=== PATIENT | male | born 1995 | race Caucasian/White ===

== ENCOUNTER 2017-11-28 17:49 | Emergency (ER) | payer OTHER, SELFPAY ==
[2017-11-28] MEDS ORDERED: IBUPROFEN 400 MG TAB ONE (18:50)
--- NOTE | 2017-11-28 19:30 | ER ---
Nurse's Notes [facility] Name: Cordell Reich Age: 22 yrs Sex: Male : 1995 Arrival Date: 11/28/2017 Time: 17:51 Bed 18 Private MD: Diagnosis: Sprain of ankle-Left Presentation: 11/28 18:01 Presenting complaint: Patient states: i was skating and i rolled my RIGHT ankle. tw2 Transition of care: patient was not received from another setting of care. Onset of symptoms was November 28, 2017. Risk Assessment: Do you want to hurt yourself or someone else? Patient reports no desire to harm self or others. Initial Sepsis Screen: Does the patient meet any 2 criteria? No. Patient's initial sepsis screen is negative. Does the patient have a suspected source of infection? No. Patient's initial sepsis screen is negative. Care prior to arrival: None. 18:01 Method Of Arrival: Ambulatory tw2 18:01 Acuity: JUAN 4 tw2 Historical: - Allergies: 18:03 No Known Allergies; tw2 - Home Meds: 18:03 None [Active]; tw2 - PMHx: 18:03 ADD/ADHD; tw2 - PSHx: 18:03 Tonsillectomy; tw2 - Immunization history:: Adult Immunizations up to date. - Social history:: Smoking status: Patient uses tobacco products, "2-3 cigarettes a day", Patient uses alcohol, occasionally. - Ebola Screening: : Patient denies travel to an Ebola-affected area in the 21 days before illness onset. Screenin:03 Abuse screen: Denies threats or abuse. Nutritional screening: No deficits noted. tw2 Tuberculosis screening: No symptoms or risk factors identified. Fall Risk None identified. Assessment: 18:08 General: Appears in no apparent distress. Behavior is calm, cooperative, appropriate tw2 for age. Pain: Complains of pain in right lateral malleolus and right medial malleolus. Neuro: Level of Consciousness is awake, alert, obeys commands, Oriented to person, place, time, situation. Cardiovascular: Denies chest pain, shortness of breath, Capillary refill < 3 seconds Patient's skin is warm and dry. Respiratory: Airway is patent Respiratory effort is even, unlabored, Respiratory pattern is regular, symmetrical. GI: No signs and/or symptoms were reported involving the gastrointestinal system. : No signs and/or symptoms were reported regarding the genitourinary system. EENT: No signs and/or symptoms were reported regarding the EENT system. Derm: No signs and/or symptoms reported regarding the dermatologic system. Skin is intact, is healthy with good turgor, Skin temperature is warm. Musculoskeletal: Range of motion: intact in all extremities. 18:49 Reassessment: Patient appears in no apparent distress at this time. No changes from tw2 previously documented assessment. Patient and/or family updated on plan of care and expected duration. Pain level reassessed. Patient is alert, oriented x 3, equal unlabored respirations, skin warm/dry/pink. 19:25 General: Appears in no apparent distress. Behavior is calm, cooperative, appropriate ea for age. Pain: Complains of pain in right medial malleolus and right lateral malleolus. Neuro: Level of Consciousness is awake, alert, obeys commands, Oriented to person, place, time, situation. Cardiovascular: Patient's skin is warm and dry. Respiratory: Airway is patent Respiratory effort is even, unlabored, Respiratory pattern is regular, symmetrical. GI: No signs and/or symptoms were reported involving the gastrointestinal system. : No signs and/or symptoms were reported regarding the genitourinary system. Derm: Skin is pink, warm \\T\\ dry. Musculoskeletal: Range of motion: intact in all extremities. 19:39 Reassessment: Patient and/or family updated on plan of care and expected duration. Pain ea level reassessed. Patient is alert, oriented x 3, equal unlabored respirations, skin warm/dry/pink. Discharge instructions given to patient, verbalized the understanding of instruction. Patient states feeling better. Patient states symptoms have improved. Vital Signs: 18:01 BP 113 / 68; Pulse 102; Resp 18; Temp 98.8(O); Pulse Ox 97% ; Weight 90.72 kg (R); tw2 Height 5 ft. 11 in. (180.34 cm); Pain 8/10; 18:01 Body Mass Index 27.89 (90.72 kg, 180.34 cm) tw2 ED Course: 17:51 Patient arrived in ED. rg4 18:01 Cherry Murillo RN is Primary Nurse. tw2 18:01 Phi Holcomb PA is PHCP. cp 18:01 South Collins MD is Attending Physician. cp 18:01 Triage completed. tw2 18:01 Arm band placed on. tw2 18:04 Bed in low position. Call light in reach. Pulse ox on. NIBP on. Ice pack to injury. tw2 19:06 Report given to FERNANDO Tamez. tw2 19:27 X-ray completed. Portable x-ray completed in exam room. Patient tolerated procedure bb2 well. 19:28 XRAY Ankle RIGHT 3 view In Process Unspecified. EDMS 19:29 Heladio Majano MD is Referral Physician. cp 19:35 Crutch training done. air cast applied. ea 19:41 No provider procedures requiring assistance completed. Patient did not have IV access ea during this emergency room visit. Administered Medications: 18:49 Drug: Ibuprofen 800 mg Route: PO; tw2 19:30 Follow up: Response: No adverse reaction; Pain is decreased ea Outcome: 19:29 Discharge ordered by MD. cp 19:41 Discharged to home with crutches. ea 19:41 Condition: improved 19:41 Discharge instructions given to patient, Instructed on discharge instructions, follow up and referral plans. medication usage, Demonstrated understanding of instructions, follow-up care, medications, Prescriptions given X 1. 19:42 Patient left the ED. ea Signatures: Dispatcher [employer] EDDC Phi Holcomb PA PA cp Wise, Tara, RN RN tw2 Elsa Dumont rg4 Joi Dale RN RN ea Bock, Brittany bb2
--- NOTE | 2017-11-28 19:30 | EDPHYS ---
Physician Documentation [facility] Name: Cordell Reich Age: 22 yrs Sex: Male : 1995 Arrival Date: 11/28/2017 Time: 17:51 Bed 18 Private MD: ED Physician South Collins HPI: 11/28 18:30 This 22 yrs old Male presents to ER via Ambulatory with complaints of Ankle cp Injury. 18:30 The patient presents with an injury, pain, that is acute, swelling, tenderness. The cp complaints affect the right ankle. Onset: The symptoms/episode began/occurred today. Context: The mechanism of injury involved inversion of the affected ankle. The patient can partially bear weight on the affected extremity. the patient is able to ambulate, with moderate difficulty. Associated signs and symptoms: Pertinent positives: tingling Pertinent negatives: calf tenderness, fever, numbness, tingling, warmth, weakness. Modifying factors: the symptoms are aggravated by weight bearing, movement. Historical: - Allergies: 18:03 No Known Allergies; tw2 - Home Meds: 18:03 None [Active]; tw2 - PMHx: 18:03 ADD/ADHD; tw2 - PSHx: 18:03 Tonsillectomy; tw2 - Immunization history:: Adult Immunizations up to date. - Social history:: Smoking status: Patient uses tobacco products, "2-3 cigarettes a day", Patient uses alcohol, occasionally. - Ebola Screening: : Patient denies travel to an Ebola-affected area in the 21 days before illness onset. ROS: 18:35 Constitutional: Negative for body aches, chills, fever, poor PO intake. cp 18:35 Eyes: Negative for injury, pain, redness, and discharge. cp 18:35 ENT: Negative for drainage from ear(s), ear pain, sore throat, difficulty swallowing, difficulty handling secretions. 18:35 Cardiovascular: Negative for chest pain, edema, palpitations. 18:35 Respiratory: Negative for cough, shortness of breath, wheezing. 18:35 Abdomen/GI: Negative for abdominal pain, nausea, vomiting, and diarrhea. 18:35 Back: Negative for pain at rest, pain with movement. 18:35 MS/extremity: Positive for pain, swelling, tenderness, of the right ankle, Negative for decreased range of motion, paresthesias. 18:35 Skin: Negative for cellulitis, rash. 18:35 All other systems are negative. Exam: 18:40 Constitutional: The patient appears in no acute distress, alert, awake, non-toxic, well cp developed, well nourished. 18:40 Head/Face: Normocephalic, atraumatic. cp 18:40 Eyes: Periorbital structures: appear normal, Conjunctiva: normal, no exudate, no injection, Lids and lashes: appear normal, bilaterally. 18:40 ENT: External ear(s): are unremarkable, Nose: is normal, Mouth: Lips: moist, Oral mucosa: pink and intact, moist, Posterior pharynx: is normal, airway is patent. 18:40 Chest/axilla: Inspection: normal. 18:40 Cardiovascular: Rate: normal, Rhythm: regular. 18:40 Respiratory: the patient does not display signs of respiratory distress, Respirations: normal, no use of accessory muscles, no retractions, no splinting, no tachypnea. 18:40 Abdomen/GI: Exam negative for discomfort, distension, guarding, Inspection: abdomen appears normal. 18:40 Back: pain, is absent, ROM is normal. 18:40 Musculoskeletal/extremity: Extremities: grossly normal except: noted in the right lateral malleolus: pain, swelling, tenderness, Perfusion: the extremity is normally perfused throughout, Sensation intact. Achilles tendon intact, no pain palpated at proximal fibula or bas of right fifth metatarsal. Vital Signs: 18:01 BP 113 / 68; Pulse 102; Resp 18; Temp 98.8(O); Pulse Ox 97% ; Weight 90.72 kg (R); tw2 Height 5 ft. 11 in. (180.34 cm); Pain 8/10; 18:01 Body Mass Index 27.89 (90.72 kg, 180.34 cm) tw2 MDM: 18:01 Patient medically screened. cp 19:00 Differential diagnosis: fracture, sprain, dislocation. cp 19:28 Data reviewed: vital signs, nurses notes, radiologic studies, plain films, and as a cp result, I will discharge patient. 19:28 Test interpretation: by ED physician or midlevel provider: plain radiologic studies. cp Counseling: I had a detailed discussion with the patient and/or guardian regarding: the historical points, exam findings, and any diagnostic results supporting the discharge/admit diagnosis, radiology results, to return to the emergency department if symptoms worsen or persist or if there are any questions or concerns that arise at home. Response to treatment: the patient's symptoms have mildly improved after treatment. 11/28 18:44 Order name: XRAY Ankle RIGHT 3 view cp 11/28 18:02 Order name: Ice pack; Complete Time: 18:43 tw2 11/28 19:28 Order name: Crutches; Complete Time: 19:39 cp 11/28 19:28 Order name: Ankle Splint: Aircast; Complete Time: 19:39 cp Administered Medications: 18:49 Drug: Ibuprofen 800 mg Route: PO; tw2 19:30 Follow up: Response: No adverse reaction; Pain is decreased ea Disposition: 11/28/17 19:29 Discharged to Home. Impression: Sprain of ankle - Left. - Condition is Stable. - Discharge Instructions: Ankle Sprain. - Prescriptions for Naprosyn 500 mg Oral Tablet - take 1 tablet by ORAL route 2 times per day As needed take with food; 20 tablet. - Medication Reconciliation Form, Thank You Letter, Antibiotic Education, Prescription Opioid Use form. - Follow up: Heladio Majano MD; When: 1 week; Reason: if pain continues. - Problem is new. - Symptoms have improved. Addendum: 12/01/2017 07:19 Co-signature as Attending Physician, South Collins MD I agree with the assessment and k dr plan of care. Signatures: Dispatcher [employer] EDMS South Collins MD MD [facility] Phi Holcomb PA PA cp Cherry Murillo RN RN tw2 Joi Dale RN RN ea Corrections: (The following items were deleted from the chart) 11/28 19:42 19:29 11/28/2017 19:29 Discharged to Home. Impression: Sprain of ankle - Left. ea Condition is Stable. Forms are Medication Reconciliation Form, Thank You Letter, Antibiotic Education, Prescription Opioid Use. Follow up: Heladio Majano; When: 1 week; Reason: if pain continues. Problem is new. Symptoms have improved. cp
[2017-11-28 19:49] VITALS: BP 113/68; TEMP 98.8; O2SAT 97
--- NOTE | 2017-11-28 20:13 | RAD REPORT ---
EXAM DESCRIPTION: RAD - Ankle Right 3 View - 11/28/2017 7:28 pm CLINICAL HISTORY: Twisting injury, ankle pain COMPARISON: March 2012 FINDINGS: No fracture, dislocation or periosteal reaction. No joint effusion seen. No joint space na rrowing. Mild lateral soft tissue swelling. There is mild anterior soft tissue swelling as well. No p lantar spur. IMPRESSION: Mild soft tissue swelling with no acute bone or joint finding.
== END 2017-11-28 19:42 | disposition home or self-care (01) ==
LOC: ER 17:49
DX: S93.401A Sprain of unspecified ligament of right ankle, initial encounter (principal); Y93.01 Activity, walking, marching and hiking; Y93.89 Activity, other specified; Y92.9 Unspecified place or not applicable; F17.210 Nicotine dependence, cigarettes, uncomplicated
CPT/HCPCS: 99284

== ENCOUNTER 2018-11-27 15:10 | Emergency (ER) | payer BC, SELFPAY ==
--- OUTSIDE RECORDS SUMMARY | 2018-11-27 15:11 | XMS REPORT ---
:1995 [facility] [address] [place] [address] Care Team Providers Name Role Phone Unavailable Unavailable Unavailable Problems This patient has no known problems. Allergies, Adverse Reactions, Alerts This patient has no known allergies or adverse reactions. Medications This patient has no known medications. Results Test Description Test Time Test Comments Text Results Atomic Results Result Comments ISTAT CHEM 8 2018-08-10 11:05:00 Test Item Value Reference Range Comments ISTATNA (test code=ISTATNA) 140 MMOL/L 137-145 ISTATK (test code=ISTATK) 3.8 MMOL/L 3.6-5.0 ISTATCL (test code=ISTATCL) 98 MMOL/L 98-107 ISTIONCA (test code=ISTIONCA) 1.17 MMOL/L 1.12-1.32 ISTCO2 (test code=ISTCO2) 28 MMOL/L 22-30 ISTATGLU (test code=ISTATGLU) 99 MG/DL 65-110 ISTATBUN (test code=ISTATBUN) 11.0 MG/DL 7.0-20.0 ISTCREA (test code=ISTCREA) 0.9 MG/DL 0.7-1.5 ISTATHCT (test code=ISTATHCT) 46 %PCV 37.0-52.0 ISTATHGB (test code=ISTATHGB) 15.6 G/DL 12.0-18.0 ISTANGAP (test code=ISTANGAP) 19 MMOL/L [id number] 10:54:00 Test Item Value Reference Range Comments GLUCOSE (test code=URGLU) NEGATIVE MG/DL NEG-100 BILIRUBN (test code=URBILI) NEGATIVE NEGATIVE KETONE (test code=URKET) NEGATIVE MG/DL NEGATIVE BLOOD (test code=URBLD) NEGATIVE UR PH (test code=URPH) 6.5 5.0-7.5 PROTEIN (test code=URPRO) NEGATIVE MG/DL NEGATIVE NITRITES (test code=URNIT) NEGATIVE NEGATIVE UROBILINGEN (test code=URURO) 0.2 EU/DL 0.2-1.0 LEUKOCYT (test code=URLEU) NEGATIVE NEGATIVE UA COLOR (test code=UA COLOR) YELLOW YELLOW CLARITY (test code=CLARITY) CLEAR CLEAR SP GRAV (test code=URSPGRAV) 1.006 1.000-1.025 UAMICRO (test code=UAMICRO) NO [id number] 09:43:00 Test Item Value Reference Range Comments LIPASE (test code=LIPA) 44 U/L 23-300 LIVER [id number] 09:43:00 Test Item Value Reference Range Comments TOTPROT (test code=TOTPROT) 7.8 G/DL 6.3-8.2 ALBUMIN (test code=ALBSERUM) 4.8 G/DL 3.5-5.0 BILITOT (test code=BILITOT) 0.8 MG/DL 0.2-1.3 BILIDIR (test code=BILIDIR) 0.5 MG/DL 0.0-0.4 AST (test code=AST) 32 U/L 15-46 PHOSALK (test code=PHOSALK) 54 U/L 38-126 ALT (test code=ALT) 38 U/L 13-69 [id number] 09:27:00 Test Item Value Reference Range Comments WBC (test code=WBC) 8.8 K/UL 3.5-10.9 RBC (test code=RBC) 5.27 M/UL 4.3-5.7 HGB (test code=HGB) 15.2 G/DL 13.0-17.9 HCT (test code=HCT) 44.1 % 38-52 MCV (test code=MCV) 83.7 FL 80-98 MCH (test code=MCH) 28.8 PG 28-32 MCHC (test code=MCHC) 34.5 G/DL 32.5-36.5 RDW (test code=RDW) 12.4 % 11.5-14.5 PLT (test code=PLT) 206 K/UL 150-450 MPV (test code=MPV) 9.5 FL 7.4-10.4 MANDIFF (test code=MANDIFF) NO SCAN (test code=SCAN) NO NEUT% (test code=NEUT%) 60.3 % 40-75 LYMPH% (test code=LYMPH%) 27.3 % 24-44 MONO% (test code=MONO%) 8.2 % 0-13 EOS% (test code=EOS%) 3.1 % 0-4 BASO % (test code=BASO%) 0.6 % 0-2 IG (test code=IG) 0 % 0-1 IG% (test code=IG%) 0.5 % 0-1 IG%=Metamyelocytes, Myelocytes, and Promyelocytes. (Immature neutrophils not including "bands".) > 3% IG indicates risk of sepsis NRBC% (test code=NRBC%) 0 /100 WBC ABS NEUT (test code=NEUT) 5.3 K/UL 1.2-7.2 CT HEAD W/O [id number] 09:15:[address] [id number] IMAGING REPORTPatient Name: Carmen REID of Service: [id number]: 23 Sex: M Order #: [id number] Room: [facility]: 1995 X-Ray Number: [id number] Record Number: [id number] Hospital Number: [id number] Physician: LEYDI ROSSOrdering Physician: ALEJANDRO ROSS CT BRAIN WITHOUT CONTRAST 08/09/2018HISTORY : Syncope, possible head injuryCOMPARISON: NoneThis CT exam was performed using one or more of the following dosereduction techniques: Automated exposure control, adjustment of the mAand/or kV according to patient size, or use of iterative reconstructiontechnique.Axial images were obtained through the brain without contrast.Visualized portions of the orbits, mastoids, scalp, and skull are withinnormal limits. Minimal mucosal thickening versus fluid is seen in theposterior left maxillary sinus.There is no acute intracranial hemorrhage, infarct, mass, shift, edema, orhydrocephalus.IMPRESSION:No acute brain process.Minimal left maxillary sinusitis changes.Electronically SignedBy: Alberto Salas M.D., 08/09/2018 9:13 AMLegally authenticated by MARIA DOLORES ELENA 2018-08-09 09: 13:20
--- NOTE | 2018-11-27 16:33 | RAD REPORT ---
EXAM DESCRIPTION: RAD - Foot Right 3 View - 11/27/2018 4:00 pm CLINICAL HISTORY: Trauma, right heel pain COMPARISON: None. FINDINGS: No fracture, dislocation or periosteal reaction. No air or foreign body in the soft tissues. IMPRESSION: Negative right foot examination.
--- NOTE | 2018-11-27 16:44 | ER ---
Nurse's Notes [facility] Name: Cordell Reich Age: 23 yrs Sex: Male : 1995 Arrival Date: 11/27/2018 Time: 15:13 Bed 18 Private MD: Diagnosis: Pain in right foot Presentation: 11/27 15:28 Presenting complaint: Right heel pain x 1 week, worse after he slipped while descending hb stairs yesterday. Transition of care: patient was not received from another setting of care. Onset of symptoms was November 26, 2018. Risk Assessment: Do you want to hurt yourself or someone else? Patient reports no desire to harm self or others. Initial Sepsis Screen: Does the patient meet any 2 criteria? No. Patient's initial sepsis screen is negative. Does the patient have a suspected source of infection? No. Patient's initial sepsis screen is negative. Care prior to arrival: None. 15:28 Method Of Arrival: Ambulatory hb 15:28 Acuity: JUAN 4 hb Historical: - Allergies: 15:30 No Known Allergies; hb - PMHx: 15:30 ADD/ADHD; hb - PSHx: 15:30 Tonsillectomy; hb - Immunization history:: Adult Immunizations up to date. - Social history:: Smoking status: Patient/guardian denies using tobacco. - Ebola Screening: : No symptoms or risks identified at this time. Screenin:45 Abuse screen: Denies threats or abuse. Nutritional screening: No deficits noted. em Tuberculosis screening: No symptoms or risk factors identified. Fall Risk None identified. Assessment: 15:45 General: Appears in no apparent distress. comfortable, Behavior is calm, cooperative. em Pain: Complains of pain in heel of right foot Pain currently is 7 out of 10 on a pain scale. Pain began 1 week ago. Neuro: Level of Consciousness is awake, alert, obeys commands, Oriented to person, place, time, situation. Cardiovascular: Capillary refill < 3 seconds Patient's skin is warm and dry. Respiratory: Airway is patent Respiratory effort is even, unlabored, Respiratory pattern is regular, symmetrical. Derm: Skin is intact, is healthy with good turgor, Skin is pink, warm \T\ dry. Musculoskeletal: Capillary refill < 3 seconds, Range of motion: intact in all extremities, Swelling absent. 15:45 Reassessment: I agree with assessment completed by Stanislav Rodriguez LVN . aa5 Vital Signs: 15:29 BP 154 / 75; Pulse 86; Resp 16; Temp 97.9; Pulse Ox 99% on R/A; Weight 95.25 kg; Height em 5 ft. 11 in. (180.34 cm); Pain 7/10; 15:29 Body Mass Index 29.29 (95.25 kg, 180.34 cm) em ED Course: 15:13 Patient arrived in ED. as 15:29 Triage completed. hb 15:29 Arm band placed on. hb 15:32 Lali Bower FNP-C is PHCP. kb 15:32 South Collins MD is Attending Physician. kb 15:45 Patient has correct armband on for positive identification. Bed in low position. Call em light in reach. Adult w/ patient. 16:00 Foot Right 3 View XRAY In Process Unspecified. EDMS 16:11 Stanislav Rodriguez LVN is Primary Nurse. em 16:54 No provider procedures requiring assistance completed. Patient did not have IV access em during this emergency room visit. Administered Medications: 16:50 Drug: [place] 5 mg-325 mg 1 tabs Route: PO; em 16:54 Follow up: Response: Medication administered at discharge. em Outcome: 16:43 Discharge ordered by MD. kb 16:54 Discharged to home ambulatory. em 16:54 Condition: good 16:54 Discharge instructions given to patient, Instructed on discharge instructions, follow up and referral plans. medication usage, Demonstrated understanding of instructions, follow-up care, medications, Prescriptions given X 1. 16:54 Patient left the ED. em Signatures: Dispatcher [employer] EDMD Lali Bower FNP-C [employer] REPA[employer]ER-Stanislav Peraza LVN LVN em Hailey Houston Audri RN RN aa5 Polly Arceo, FERNANDO RN Corrections: (The following items were deleted from the chart) 16:13 15:29 BP 154 / 75; Pulse 16bpm; Resp 16bpm; Pulse Ox 99% RA; Temp 97.9F; 95.25 kg; em Height 5 ft. 11 in.; BMI: 29.2; Pain 7/10; hb
--- NOTE | 2018-11-27 16:44 | EDPHYS ---
Physician Documentation [facility] Name: Cordell Reich Age: 23 yrs Sex: Male : 1995 Arrival Date: 11/27/2018 Time: 15:13 Bed 18 Private MD: ED Physician [place] HPI: 11/27 16:49 This 23 yrs old Male presents to ER via Ambulatory with complaints of Foot kb Injury. 16:49 The patient presents with pain, tenderness. The complaints affect the right foot. kb Context: The problem was sustained at home, resulted from jumping off second floor [employer], the patient can partially bear weight, the patient is able to ambulate. Onset: The symptoms/episode began/occurred 1 week(s) ago. Modifying factors: The symptoms are alleviated by nothing, the symptoms are aggravated by weight bearing. Associated signs and symptoms: The patient has no apparent associated signs or symptoms. Severity of symptoms: At their worst the symptoms were moderate, in the emergency department the symptoms are unchanged. The patient has not experienced similar symptoms in the past. The patient has not recently seen a physician. Pt reports right heel pain after jumping from his balGlycode. STates "I sometimes jump from up there to downstairs and the last time I did it I landed on a pillow. My heel has been hurting since then.". Historical: - Allergies: 15:30 No Known Allergies; hb - PMHx: 15:30 ADD/ADHD; hb - PSHx: 15:30 Tonsillectomy; hb - Immunization history:: Adult Immunizations up to date. - Social history:: Smoking status: Patient/guardian denies using tobacco. - Ebola Screening: : No symptoms or risks identified at this time. ROS: 16:48 Constitutional: Negative for fever, chills, and weight loss, Neck: Negative for injury, kb pain, and swelling, Cardiovascular: Negative for chest pain, palpitations, and edema, Respiratory: Negative for shortness of breath, cough, wheezing, and pleuritic chest pain, Abdomen/GI: Negative for abdominal pain, nausea, vomiting, diarrhea, and constipation, Skin: Negative for injury, rash, and discoloration, Neuro: Negative for headache, weakness, numbness, tingling, and seizure. 16:48 MS/extremity: Positive for pain, tenderness. Exam: 16:48 Constitutional: This is a well developed, well nourished patient who is awake, alert, kb and in no acute distress. Head/Face: Normocephalic, atraumatic. Chest/axilla: Normal chest wall appearance and motion. Nontender with no deformity. No lesions are appreciated. Cardiovascular: Regular rate and rhythm with a normal S1 and S2. No gallops, murmurs, or rubs. Normal PMI, no JVD. No pulse deficits. Respiratory: Lungs have equal breath sounds bilaterally, clear to auscultation and percussion. No rales, rhonchi or wheezes noted. No increased work of breathing, no retractions or nasal flaring. Abdomen/GI: Soft, non-tender, with normal bowel sounds. No distension or tympany. No guarding or rebound. No evidence of tenderness throughout. Back: No spinal tenderness. No costovertebral tenderness. Full range of motion. Skin: Warm, dry with normal turgor. Normal color with no rashes, no lesions, and no evidence of cellulitis. Neuro: Awake and alert, GCS 15, oriented to person, place, time, and situation. Cranial nerves II-XII grossly intact. Motor strength 5/5 in all extremities. Sensory grossly intact. Cerebellar exam normal. Normal gait. 16:48 Musculoskeletal/extremity: Extremities: grossly normal except: noted in the heel of right foot: pain, ROM: intact in all extremities, Circulation is intact in all extremities. Sensation intact. Weight bearing: can bear weight with assistance only. Vital Signs: 15:29 BP 154 / 75; Pulse 86; Resp 16; Temp 97.9; Pulse Ox 99% on R/A; Weight 95.25 kg; Height em 5 ft. 11 in. (180.34 cm); Pain 7/10; 15:29 Body Mass Index 29.29 (95.25 kg, 180.34 cm) em MDM: 15:32 Patient medically screened. kb 16:47 Data reviewed: vital signs, nurses notes. Data interpreted: Pulse oximetry: on room air kb is 99 %. Interpretation: normal. Counseling: I had a detailed discussion with the patient and/or guardian regarding: the historical points, exam findings, and any diagnostic results supporting the discharge/admit diagnosis, radiology results, the need for outpatient follow up, a family practitioner, to return to the emergency department if symptoms worsen or persist or if there are any questions or concerns that arise at home. 11/27 15:33 Order name: Foot Right 3 View XRAY; Complete Time: 16:37 kb Administered Medications: 16:50 Drug: [place] 5 mg-325 mg 1 tabs Route: PO; em 16:54 Follow up: Response: Medication administered at discharge. em Disposition: 11/27/18 16:43 Discharged to Home. Impression: Pain in right foot. - Condition is Stable. - Discharge Instructions: Foot Sprain. - Prescriptions for Diclofenac Sodium 75 mg Oral Tablet, Delayed Release (E.C.) - take 1 tablet by ORAL route 2 times per day As needed; 30 tablet. - Medication Reconciliation Form, Thank You Letter, Antibiotic Education, Prescription Opioid Use, Work release form form. - Follow up: Emergency Department; When: As needed; Reason: Worsening of condition. Follow up: Private Physician; When: 2 - 3 days; Reason: Recheck today's complaints, Continuance of care, Re-evaluation by your physician. Addendum: 11/30/2018 09:10 Co-signature as Attending Physician, [place] MD I agree with the assessment and k dr plan of care. Signatures: Dispatcher [employer] EDLali Bowie, SYNTHETIC DEPARTMENT SUPERVISOR-C SYNTHETIC DEPARTMENT SUPERVISOR-Ckb [place] MD MD [facility] Stanislav Rodriguez, EL TEACHER EL TEACHER Polly Arceo, FERNANDO RN Corrections: (The following items were deleted from the chart) 11/27 16:54 16:43 11/27/2018 16:43 Discharged to Home. Impression: Pain in right foot. Condition is em Stable. Forms are Medication Reconciliation Form, Thank You Letter, Antibiotic Education, Prescription Opioid Use. Follow up: Emergency Department; When: As needed; Reason: Worsening of condition. Follow up: Private Physician; When: 2 - 3 days; Reason: Recheck today's complaints, Continuance of care, Re-evaluation by your physician. kb
[2018-11-27] MEDS ORDERED: HYDROCODONE/APAP 5/325 MG TAB ONE (16:49)
[2018-11-27 16:59] VITALS: BP 154/75; TEMP 97.9; O2SAT 99
== END 2018-11-27 16:54 | disposition home or self-care (01) ==
LOC: ER 15:10
DX: M79.671 Pain in right foot (principal); F90.9 Attention-deficit hyperactivity disorder, unspecified type
CPT/HCPCS: 99283

== ENCOUNTER 2020-03-22 23:26 | Emergency (ER) | payer BC ==
--- OUTSIDE RECORDS SUMMARY | 2020-03-22 23:29 | XMS REPORT | Continuity of Care Document ---
:1995 Author Organization [facility] t Address [address] [place] [address] Care Team Providers Name Role Phone Unavailable Unavailable Unavailable Problems This patient has no known problems. Allergies, Adverse Reactions, Alerts This patient has no known allergies or adverse reactions. Medications This patient has no known medications. Procedures This patient has no known procedures. Results Test Description Test Time Test Comments Results Result Comments Source ISTAT CHEM 8 2018-08-10 11:05:00 Test Item Value Reference Range Interpretation Comme nts ISTATNA (test code = ISTATNA) 140 MMOL/L 137-145 ISTATK (test code = ISTATK) 3.8 MMOL/L 3.6-5.0 ISTATCL (test code = ISTATCL) 98 MMOL/L 98-107 ISTIONCA (test code = ISTIONCA) 1.17 MMOL/L 1.12-1.32 ISTCO2 (test code = ISTCO2) 28 MMOL/L 22-30 ISTATGLU (test code = ISTATGLU) 99 MG/DL 65-110 ISTATBUN (test code = ISTATBUN) 11.0 MG/DL 7.0-20.0 ISTCREA (test code = ISTCREA) 0.9 MG/DL 0.7-1.5 ISTATHCT (test code = ISTATHCT) 46 %PCV 37.0-52.0 ISTATHGB (test code = ISTATHGB) 15.6 G/DL 12.0-18.0 ISTANGAP (test code = ISTANGAP) 19 MMOL/L [id number] 10:54:00 Test Item Value Reference Range Interpretation Comments GLUCOSE (test code = URGLU) NEGATIVE MG/DL NEG-100 BILIRUBN (test code = URBILI) NEGATIVE NEGATIVE KETONE (test code = URKET) NEGATIVE MG/DL NEGATIVE BLOOD (test code = URBLD) NEGATIVE UR PH (test code = URPH) 6.5 5.0-7.5 PROTEIN (test code = URPRO) NEGATIVE MG/DL NEGATIVE NITRITES (test code = URNIT) NEGATIVE NEGATIVE UROBILINGEN (test code = 0.2 EU/DL 0.2-1.0 URURO) LEUKOCYT (test code = URLEU) NEGATIVE NEGATIVE UA COLOR (test code = UA YELLOW YELLOW COLOR) CLARITY (test code = CLARITY) CLEAR CLEAR SP GRAV (test code = URSPGRAV) 1.006 1.000-1.025 UAMICRO (test code = UAMICRO) NO [id number] 09:43:00 Test Item Value Reference Range Interpretation Comments LIPASE (test code = LIPA) 44 U/L 23-300 LIVER [id number] 09:43:00 Test Item Value Reference Range Interpretation Comments TOTPROT (test code = TOTPROT) 7.8 G/DL 6.3-8.2 ALBUMIN (test code = ALBSERUM) 4.8 G/DL 3.5-5.0 BILITOT (test code = BILITOT) 0.8 MG/DL 0.2-1.3 BILIDIR (test code = BILIDIR) 0.5 MG/DL 0.0-0.4 H AST (test code = AST) 32 U/L 15-46 PHOSALK (test code = PHOSALK) 54 U/L 38-126 ALT (test code = ALT) 38 U/L 13-69 [id number] 09:27:00 Test Item Value Reference Range Interpretation Comments WBC (test code = 8.8 K/UL 3.5-10.9 WBC) RBC (test code = 5.27 M/UL 4.3-5.7 RBC) HGB (test code = 15.2 G/DL 13.0-17.9 HGB) HCT (test code = 44.1 % 38-52 HCT) MCV (test code = 83.7 FL 80-98 MCV) MCH (test code = 28.8 PG 28-32 MCH) MCHC (test code = 34.5 G/DL 32.5-36.5 MCHC) RDW (test code = 12.4 % 11.5-14.5 RDW) PLT (test code = 206 K/UL 150-450 PLT) MPV (test code = 9.5 FL 7.4-10.4 MPV) MANDIFF (test code = NO MANDIFF) SCAN (test code = NO SCAN) NEUT% (test code = 60.3 % 40-75 NEUT%) LYMPH% (test code = 27.3 % 24-44 LYMPH%) MONO% (test code = 8.2 % 0-13 MONO%) EOS% (test code = 3.1 % 0-4 EOS%) BASO % (test code = 0.6 % 0-2 BASO%) IG (test code = IG) 0 % 0-1 IG% (test code = 0.5 % 0-1 IG% = Metam yelocytes, IG%) Myelocytes, and Promyelocytes. (Immature neutr ophils not including " bands".) > 3% IG indic ates risk of sepsis NRBC% (test code = 0 /100 WBC NRBC%) ABS NEUT (test code 5.3 K/UL 1.2-7.2 = NEUT) CT HEAD W/O [id number] 09:15:[address] [id number] IMAGING REPORTPatient Name: Carmen REID of Service: [id number]: 23 Sex: M Order #: [id number] Room: [facility]: 1995 X-Ray Number: [id number] Record Number: [id number] Hospital Number: [id number] Physician: LEYDI ROSSOrdering Physician: ALEJANDRO ROSS CT BRAIN WITHOUT CONTRAST 08/09/2018HISTORY: Syncope, possible head injuryCOMPARISON: NoneThis CT exam [...] AMLegally authenticated by MARIA DOLORES ELENA 2018-08-09 09:13:20
[2020-03-23 00:50] LABS: Absolute Lymphocytes (CBC) 2.2 K/uL (0.7-4.9); Basophils % 0.6 % (0-1.3); Lymphocytes % 25.7 % (15.3-44.8); MPV 8.1 fL (7.6-11.3); Protime INR 1.01; RBC Red Blood Cell Count 5.15 M/uL (4.33-5.43)
[2020-03-23 01:03] LABS: ALT/SGPT 32 U/L (12-78); AST/SGOT 20 U/L (15-37); Albumin 4.2 g/dL (3.4-5.0); Alkaline Phosphatase 47 U/L (45-117); BUN Blood Urea Nitrogen 14 mg/dL (7-18); Bicarbonate 31 mmol/L (21-32); Bilirubin Direct 0.2 mg/dL (0-0.2); Bilirubin Total 0.6 mg/dL (0.2-1.0); Glucose Level 87 mg/dL (74-106); Potassium 3.6 mmol/L (3.5-5.1); Protein, Total 7.6 g/dL (6.4-8.2); Sodium Level 141 mmol/L (136-145)
[2020-03-23 01:59] LABS: Urine Blood NEGATIVE (NEG); Urine Glucose NEGATIVE (NEG); Urine Protein NEGATIVE (NEG); Urine pH 6.5 (5.0-7.0)
[2020-03-23 02:09] LABS: Barbiturates NEGATIVE (NEGATIVE); Benzodiazepines POSITIVE (NEGATIVE); Cocaine NEGATIVE (NEGATIVE); METHAMPHETAM NEGATIVE (NEGATIVE); Methadone NEGATIVE (NEGATIVE); Opiates NEGATIVE (NEGATIVE); Phencyclidine NEGATIVE (NEGATIVE); THC Cannibis POSITIVE (NEGATIVE)
[2020-03-23] MEDS ORDERED: NICOTINE 7 MG/PAT TD ONE (02:39)
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
--- NOTE | 2020-03-23 08:13 | EDPHYS ---
Physician Documentation [facility] Name: Cordell Reich Age: 24 yrs Sex: Male : 1995 Arrival Date: 03/22/2020 Time: 23:27 Bed 17 Private MD: ED Physician Kevin Magallon HPI: 03/23 00:15 This 24 yrs old Male presents to ER via EMS with complaints of Suicidal tw4 Ideation. 00:15 The patient presents to the emergency department with suicide ideation, but the patient tw4 has no formulated plan. Onset: The symptoms/episode began/occurred just prior to arrival. Past psychiatric history: Prior diagnosis: bipolar disorder, Psychiatric medications include: Ativan. Associated signs and symptoms: The patient has no apparent associated signs or symptoms. Severity of symptoms: At their worst the symptoms were moderate in the emergency department the symptoms. The patient has not experienced similar symptoms in the past. Historical: - Allergies: 03/22 23:27 No Known Allergies; jb4 - Home Meds: 23:27 None [Active]; jb4 - PMHx: 23:27 ADD/ADHD; Manic depressive disorder; jb4 - PSHx: 23:27 Tonsillectomy; jb4 - Immunization history:: Adult Immunizations up to date. - Social history:: Smoking status: Patient denies any tobacco usage or history of. Patient uses alcohol, occasionally. street drugs, marijuana. ROS: 03/23 00:15 Constitutional: Negative for fever, chills, and weight loss, Eyes: Negative for injury, tw4 pain, redness, and discharge, Cardiovascular: Negative for chest pain, palpitations, and edema, Respiratory: Negative for shortness of breath, cough, wheezing, and pleuritic chest pain, Abdomen/GI: Negative for abdominal pain, nausea, vomiting, diarrhea, and constipation, Back: Negative for injury and pain, Skin: Negative for injury, rash, and discoloration, Neuro: Negative for headache, weakness, numbness, tingling, and seizure. Psych: Positive for suicidal ideation. Exam: 00:15 Constitutional: This is a well developed, well nourished patient who is awake, alert, tw4 and in no acute distress. Head/Face: Normocephalic, atraumatic. Chest/axilla: Normal chest wall appearance and motion. Nontender with no deformity. No lesions are appreciated. Cardiovascular: Regular rate and rhythm with a normal S1 and S2. No gallops, murmurs, or rubs. Normal PMI, no JVD. No pulse deficits. Respiratory: Lungs have equal breath sounds bilaterally, clear to auscultation and percussion. No rales, rhonchi or wheezes noted. No increased work of breathing, no retractions or nasal flaring. Abdomen/GI: Soft, non-tender, with normal bowel sounds. No distension or tympany. No guarding or rebound. No evidence of tenderness throughout. Back: No spinal tenderness. No costovertebral tenderness. Full range of motion. MS/ Extremity: Pulses equal, no cyanosis. Neurovascular intact. Full, normal range of motion. Neuro: Awake and alert, GCS 15, oriented to person, place, time, and situation. Cranial nerves II-XII grossly intact. Motor strength 5/5 in all extremities. Sensory grossly intact. Cerebellar exam normal. Normal gait. 00:15 Psych: Behavior/mood is pleasant, Affect is animated, Oriented to person, place, time, Patient having thoughts of suicide. Judgement / Insight is impaired. Vital Signs: 03/22 23:31 BP 102 / 48; Pulse 75; Resp 16; Temp 98.0(TE); Pulse Ox 100% on R/A; Weight 92.99 kg fu (R); Height 5 ft. 11 in. (180.34 cm) (R); 03/23 04:49 BP 119 / 62 LA Supine (man/reg); Pulse 60 LA; Resp 16 S; Temp 97.5(O); Pulse Ox 97% on jb5 R/A; 07:54 BP 127 / 63; Pulse 73; Resp 18; Temp 97.1; Pulse Ox 100% ; Pain 0/10; ap 12:00 BP 121 / 65; Pulse 78; Resp 16; Temp 97.5; Pulse Ox 98% ; bp 03/22 23:31 Body Mass Index 28.59 (92.99 kg, 180.34 cm) fu MDM: 03/22 23:37 Patient medically screened. tw4 03/23 06:40 Differential diagnosis: drug withdrawal. depression. Data reviewed: vital signs, nurses tw4 notes. Data interpreted: Pulse oximetry: Interpretation: normal. Test interpretation: by ED physician or midlevel provider: ECG. Counseling: I had a detailed discussion with the patient and/or guardian regarding: the historical points, exam findings, and any diagnostic results supporting the discharge/admit diagnosis, lab results, the need to transfer to another facility, for higher level of care, [facility] does not immediately have the required specialist. ED course: Pt has been evaluated by [facility] and has met criteria for inpatient . 08:04 ED course: reassess note, patient aox4 has si, normal vs, stable no new syx. hi2 03/22 23:37 Order name: Acetaminophen; Complete Time: 02:19 03/23 02:19 Interpretation: Within normal limits: ACETA < 2.0. 03/22 23:37 Order name: Basic Metabolic Panel; Complete Time: 02:19 03/23 02:19 Interpretation: Within normal limits. 03/22 23:37 Order name: CBC with Diff; Complete Time: 00:53 03/23 02:20 Interpretation: Within normal limits. 03/22 23:37 Order name: ETOH Level; Complete Time: 02:19 03/23 02:19 Interpretation: Within normal limits: ETOH < 10. 03/22 23:37 Order name: Hepatic Function; Complete Time: 02:19 03/23 02:19 Interpretation: Within normal limits. 03/22 23:37 Order name: PT-INR; Complete Time: 02:19 [facility] 03/23 02:19 Interpretation: Normal except: PT 11.9. 03/22 23:37 Order name: Ptt, Activated; Complete Time: 02:19 03/23 02:19 Interpretation: Within normal limits: PTT 29.3. 03/22 23:37 Order name: Salicylate; Complete Time: 00:53 03/23 02:20 Interpretation: Within normal limits: BABS 2.0. 03/22 23:37 Order name: Urine Drug Screen; Complete Time: 02:19 03/23 02:19 Interpretation: Normal except: BZO POSITIVE; THC POSITIVE. 03/23 01:56 Order name: Urine Dipstick--Ancillary (enter results); Complete Time: 02:19 03/23 02:19 Interpretation: Within normal limits. 03/23 02:21 Order name: COVID-19 2 03/23 02:26 Order name: [facility] 03/23 03:30 Order name: SARS-COV-2 RT PCR; Complete Time: 07:34 EDKS 03/22 23:37 Order name: EKG; Complete Time: 23:38 tw4 03/22 23:37 Order name: EKG - Nurse/Tech; Complete Time: 23:58 tw 03/22 23:37 Order name: IV Saline Lock; Complete Time: 00:32 tw4 03/22 23:37 Order name: Labs collected and sent; Complete Time: 00:32 tw4 03/22 23:37 Order name: Urine Dipstick-Ancillary (obtain specimen); Complete Time: 01:40 tw4 Administered Medications: 02:42 Drug: Nicoderm CQ 7 mg/24 hr 1 patches Route: Transdermal; Site: anterior chest wall; jb4 11:43 Drug: Nicotine 7 mg/24 hr 1 patches Route: Transdermal; Site: affected area; bp Disposition: 03/23/20 08:12 Transfer ordered to Other Acute Care Facility. Diagnosis is Suicidal ideations. - Reason for transfer: Higher level of care. - Accepting physician is accepted by [facility] [place] . - Condition is Stable. - Problem is new. - Symptoms are unchanged. Signatures: Dispatcher [employer] Freddie Fox, RN RN jb4 Mauro Abraham RN RN Tree Rice MD MD hi2 Kevin Magallon MD MD tw4 Dinorah Wood Corrections: (The following items were deleted from the chart) 08:13 08:12 03/23/2020 08:12 Transfer ordered to Other Acute Care Facility. Diagnosis is eb Suicidal ideations. Reason for transfer: Higher level of care. Accepting physician is accepted by [facility] . Condition is Stable. Problem is new. Symptoms are unchanged. [facility] 12:51 08:13 03/23/2020 08:12 Transfer ordered to Other Acute Care Facility. Diagnosis is bp Suicidal ideations. Reason for transfer: Higher level of care. Accepting physician is accepted by [facility] . Condition is Stable. Problem is new. Symptoms are unchanged. eb
[2020-03-23] MEDS ORDERED: NICOTINE 21 MG/PAT TD ONE (11:54)
[2020-03-23 13:46] VITALS: BP 121/65; TEMP 97.5; O2SAT 98
== END 2020-03-23 12:51 ==
LOC: ER 23:26
DX: R45.851 Suicidal ideations (principal); Z20.828 Contact with and (suspected) exposure to other viral communicable diseases
CPT/HCPCS: 93005; 85025; 80048; 36415; 80320; 80329 ×2; 85610; 80076; 80307 ×8; 85730; 81003; 99285; U0003